=== PATIENT | male | born 1985 | race Caucasian/White ===

== ENCOUNTER 2017-01-17 20:02 | Emergency (ER) | payer BC ==
[~2017-01-17] VITALS: Ht 189.2 cm; Wt 145.4 kg
[2017-01-17 20:14] VITALS: BP 140/82; PULSE 114; TEMP 36.5; O2SAT 95; Ht 189.2 cm; Wt 145.4 kg
[2017-01-17] MEDS ORDERED: FEXO5TAB2 PO (20:26)
--- NOTE | 2017-01-17 20:40 | DIAGNOSTIC IMAGING REPORT ---
R ANKLE MIN 3 VIEWS ROUTINE CLINICAL HISTORY: R ankle injury trauma. Pain. COMPARISON: None. DISCUSSION: Lateral malleolar soft tissue edema. No acute bony abnormality. Subtalar joint is within normal limits. Ankle mortise is aligned anatomically. IMPRESSION: Lateral soft tissue edema. No acute bony abnormality. The above report was generated using voice recognition software. It may contain grammatical, syntax or spelling errors. Electronically signed by: Mohit Miller M.D. 01/17/2017 8:39 PM Dictated Date/Time: 01/17/2017 8:38 PM
--- NOTE | 2017-01-17 20:50 | EMERGENCY ROOM VISIT NOTE ---
History First contact with patient: 20:18 Chief Complaint: ANKLE PAIN Stated Complaint: R ANKLE ROLLED, PAIN UP TO HIP History of Present Illness The patient is a 31 year old male who presents to the Emergency Room with complaints of an injury to the right ankle tonight while playing volleyball. The injury happened approximately one hour ago, stating that he rolled his right ankle running across the floor. The patient has been applying ice, but reports persistent swelling and pain. He has not taken any medicine for the pain, and currently rates his discomfort a 7 out of 10 on my exam. Review of Systems 10 system review was performed and was negative except for pertinent positives and negatives as indicated in history of present illness Past Medical/Surgical History Medical Problems: (1) Clavicle fracture (2) S/P ORIF (open reduction internal fixation) fracture Family History No significant family history Social History Smoking Status: Never Smoker Alcohol Use: occasionally Drug Use: none Marital Status: single Housing Status: lives with family Occupation Status: employed Current/Historical Medications Scheduled PRN Fexofenadine-Pseudoephedrine (Barbara-D 12 Hour Allergy), 1 TAB PO BID PRN for Seasonal Allergies Physical Exam Vital Signs Date Time Temp Pulse Resp B/P (MAP) Pulse Ox O2 Delivery O2 Flow Rate FiO2 01/17/17 20:14 36.5 114 20 140/82 95 Nasal Cannula Physical Exam CONSTITUTIONAL: Healthy and well nourished. Alert and oriented X 3 with positive affect. She does not appear in any significant distress. HEENT: Normocephalic, atraumatic. Pupils equal, round and reactive. NECK: Full active range of motion without discomfort. MUSCULOSKELETAL: Examination of the right ankle shows mild lateral edema. No ecchymosis or open wounds noted. He is tender over the lateral malleolus and ligament. Minimal tenderness over the deltoid ligament. Negative anterior draw. No focal tenderness over the dorsal midfoot, metatarsals, phalanges, calcaneus, Achilles tendon or proximal leg. Pedal pulses are intact. INTEGUMENTARY: No rash or other significant dermatologic conditions noted. NEUROLOGIC: Right foot and toes are sensory intact. Medical Decision & Procedures ER Provider Diagnostic Interpretation: My interpretation of right ankle x-rays does not show any obvious fractures, dislocation or ankle mortise asymmetry. Radiologist report is as follows: R ANKLE MIN 3 VIEWS ROUTINE CLINICAL HISTORY: R ankle injury trauma. Pain. COMPARISON: None. DISCUSSION: Lateral malleolar soft tissue edema. No acute bony abnormality. Subtalar joint is within normal limits. Ankle mortise is aligned anatomically. IMPRESSION: Lateral soft tissue edema. No acute bony abnormality. ED Course Patient history and physical exam were performed. Nurse's notes were reviewed. Vital signs were reviewed. X-rays of the right ankle were normal. The patient was fitted with crutches. He was encouraged to intermittently apply ice and elevate ankle for swelling and pain. I did encourage plenty of range of motion exercises. Ibuprofen and Tylenol in alternating fashion as needed for additional pain relief. Follow-up with orthopedics if symptoms are not improving within the next week. The patient was happy with plan of care, voiced understanding of all discharge instructions, and rated his discomfort a 3 out of 10 at the conclusion of my exam. He refused any analgesics while in the emergency department. Medical Decision Blood Pressure Screening Patient's blood pressure: Normal blood pressure Impression Primary Impression: Right ankle sprain Departure Information Referrals No Doctor, Assigned (PCP) Patient Instructions My [facility] Health Problem Qualifiers Primary Impression: Right ankle sprain Encounter type: initial encounter Involved ligament of ankle: unspecified ligament Qualified Codes: S93.401A - Sprain of unspecified ligament of right ankle, initial encounter
== END 2017-01-17 21:07 | disposition home or self-care (01) ==
LOC: C.EDB 20:03 → C.EDD 21:07
DX: S93.401A Sprain of unspecified ligament of right ankle, initial encounter (principal); W18.49XA Other slipping, tripping and stumbling without falling, initial encounter; Y93.68 Activity, volleyball (beach) (court)